=== PATIENT | female | born 2000 | race Two or more races ===

== ENCOUNTER 2020-02-03 18:22 | Inpatient (IN) | payer MEDICAID ==
[~2020-02-03] VITALS: Ht 160 cm; Wt 92.0 kg
[2020-02-03] MEDS ORDERED: D5%-LACTATED RINGERS 1,000 ML IV SCH (18:27)
[2020-02-03] MEDS ORDERED: LACTATED RINGERS 1,000 ML IV SCH (18:27)
[2020-02-03] MEDS ORDERED: OXYTOCIN 30U/ 0.9% NaCL 500ML 500 ML IV ONE (18:27)
[2020-02-03] MEDS ORDERED: OXYTOCIN 30U/ 0.9% NaCL 500ML 500 ML IV PRN (18:27)
[2020-02-03] MEDS ORDERED: FENTANYL PF 100 MCG/2ML IV PRN (18:30)
[2020-02-03] MEDS ORDERED: TERBUTALINE 1 MG/ML, 1ML IVPush PRN (18:30)
[2020-02-03] MEDS ORDERED: FENTANYL PF 100 MCG/2ML IVPush PRN (18:30)
[2020-02-03] MEDS ORDERED: TERBUTALINE 1 MG/ML, 1ML SQ PRN (18:30)
[2020-02-03] MEDS ORDERED: ONDANSETRON 2MG/ML, 2ML IVPush PRN (18:30)
[2020-02-03 19:00] VITALS: BP 128/85
[2020-02-03 19:11] LABS: BASOPHILS # (AUTO) 0.04 x10^3/uL (0-0.3); BASOPHILS % (AUTO) 0 % (0-1); EOSINOPHILS # (AUTO) 0.02 x10^3/uL (0-0.8); EOSINOPHILS % (AUTO) 0 % (1-7); LYMPHOCYTES # (AUTO) 1.46 x10^3/uL (1-6.1); LYMPHOCYTES % (AUTO) 12 % (22-44); MD NO; MEAN CORPUSCULAR HEMOGLOBIN 29.2 pg (27.0-34.8); MEAN CORPUSCULAR HGB CONC 33.4 g/dL (32.4-35.8); MEAN CORPUSCULAR VOLUME 87.4 fL (80-100); MEAN PLATELET VOLUME 10.1 fL (7.4-10.4); MONOCYTES # (AUTO) 0.81 x10^3/uL (0-1.4); MONOCYTES % (AUTO) 7 % (2-9); NEUTROPHILS # (AUTO) 9.43 x10^3/uL (1.8-8.0); NEUTROPHILS % (AUTO) 80 % (42-75); PLATELET COUNT 209 x10^3/uL (130-400); RED BLOOD COUNT 4.19 x10^6/uL (3.82-5.3); RED CELL DISTRIBUTION WIDTH 14.1 % (9.6-15.2)
[2020-02-03] MEDS ORDERED: MISOPROSTOL 200 MCG TABLET ONE (19:56)
[2020-02-03] MEDS ORDERED: OXYTOCIN 30U/ 0.9% NaCL 500ML 500 ML ONE (19:56)
[2020-02-03] MEDS ORDERED: LIDOCAINE 1%, 20ML ONE (19:57)
[2020-02-03] MEDS ORDERED: FENTANYL PF 100 MCG/2ML ONE (20:09)
[2020-02-04] MEDS ORDERED: FENTANYL PF 100 MCG/2ML ONE (01:42)
[2020-02-04] MEDS: OXYTOCIN 30U/ 0.9% NaCL 500ML 500 ML IV SCH ×3 (02:15→22:15)
[2020-02-04] MEDS ORDERED: IBUPROFEN 600 MG TABLET ONE (02:26)
[2020-02-04] MEDS: IBUPROFEN 600 MG TABLET PO PRN ×3 (02:28→17:10)
[2020-02-04] MEDS ORDERED: METHYLERGONOVINE 0.2 MG/ML IM PRN (02:30)
[2020-02-04] MEDS ORDERED: ONDANSETRON 2MG/ML, 2ML IV PRN (02:30)
[2020-02-04] MEDS ORDERED: MISOPROSTOL 200 MCG TABLET PR PRN (02:30)
[2020-02-04] MEDS ORDERED: TRANEXAMIC ACID 100 MG/ML, 10ML IV ONE (02:30)
[2020-02-04] MEDS ORDERED: SIMETHICONE 80 MG CHEW TAB PO PRN (02:30)
[2020-02-04] MEDS ORDERED: OXYcodone/APAP 5/325MG TABLET PO PRN ×2 (02:30)
[2020-02-04] MEDS ORDERED: DIPH,PERTUSS(ACELL),TET VAC/PF NC IM-VACC ONE (03:55)
[2020-02-04 04:15] VITALS: BP 128/77
[2020-02-04 07:51] VITALS: BP 115/73
[2020-02-04] MEDS: PRENATAL VIT/IRON/FA 1 EACH TABLET PO SCH (08:48)
[2020-02-04] MEDS: DOCUSATE 100 MG CAPSULE PO PRN (08:48)
[2020-02-04 09:30] LABS: MEAN CORPUSCULAR HEMOGLOBIN 29.6 pg (27.0-34.8); MEAN CORPUSCULAR HGB CONC 33.2 g/dL (32.4-35.8); MEAN PLATELET VOLUME 9.8 fL (7.4-10.4); PLATELET COUNT 192 x10^3/uL (130-400); RED BLOOD COUNT 3.88 x10^6/uL (3.82-5.3); RED CELL DISTRIBUTION WIDTH 14.2 % (9.6-15.2)
[2020-02-04 10:39] LABS: BASOPHILS # (AUTO) 0.01 x10^3/uL (0-0.3); BASOPHILS % (AUTO) 0 % (0-1); EOSINOPHILS % (AUTO) 0 % (1-7); LYMPHOCYTES # (AUTO) 1.34 x10^3/uL (1-6.1); LYMPHOCYTES % (AUTO) 7 % (22-44); MD SCAN; MONOCYTES # (AUTO) 1.35 x10^3/uL (0-1.4); MONOCYTES % (AUTO) 7 % (2-9); NEUTROPHILS # (AUTO) 15.67 x10^3/uL (1.8-8.0); NEUTROPHILS % (AUTO) 85 % (42-75)
[2020-02-04 13:02] VITALS: BP 110/72
[2020-02-04 17:51] VITALS: BP 121/74
[2020-02-04 20:45] VITALS: BP 110/73
[2020-02-05 00:45] VITALS: BP 110/69
[2020-02-05 07:41] VITALS: BP 111/73
[2020-02-05] MEDS: OXYTOCIN 30U/ 0.9% NaCL 500ML 500 ML IV SCH (08:15)
[2020-02-05] MEDS: PRENATAL VIT/IRON/FA 1 EACH TABLET PO SCH (10:11)
[2020-02-05] MEDS: DOCUSATE 100 MG CAPSULE PO PRN (10:11)
== END 2020-02-05 16:15 | disposition home or self-care (01) | DRG 806 ==
LOC: LDOP 18:22 → LDIP 18:38 → 2NW 02-04 03:40
PROVIDERS: ADMIT Obstetrics & Gynecology; ATTEND Obstetrics & Gynecology
PROC: 10E0XZZ Delivery of Products of Conception, External Approach (ICD-10-PCS; principal; 2020-02-04)
PROC: 10907ZC Drainage of Amniotic Fluid, Therapeutic from Products of Conception, Via Natural or Artificial Opening (ICD-10-PCS; 2020-02-04)
PROC: 0UQGXZZ Repair Vagina, External Approach (ICD-10-PCS; 2020-02-04)
DX: O77.0 Labor and delivery complicated by meconium in amniotic fluid (principal); O71.4 Obstetric high vaginal laceration alone; Z37.0 Single live birth; Z3A.39 39 weeks gestation of pregnancy
CPT/HCPCS: 36415; 85025; 86592; 86850; 86900; G0378